=== PATIENT | male | born 1955 | race Caucasian/White ===

== ENCOUNTER 2018-04-12 07:08 | Day surgery (SDC) | payer OTHER | END 2018-04-12 13:50 | disposition home or self-care (01) | LOC: AMB-ENDOS 07:08 | DX: D12.4 Benign neoplasm of descending colon (principal); K64.1 Second degree hemorrhoids ==

== ENCOUNTER 2019-04-25 07:48 | Day surgery (SDC) | payer OTHER | END 2019-04-25 15:00 | disposition home or self-care (01) | LOC: AMB-ENDOS 07:48 | DX: D12.4 Benign neoplasm of descending colon (principal); K57.30 Diverticulosis of large intestine without perforation or abscess without bleeding; K64.1 Second degree hemorrhoids ==